=== PATIENT | female | born 1985 | race African-American/Black ===

== ENCOUNTER 2018-01-18 00:46 | Emergency (ER) | payer SELFPAY ==
[~2018-01-18] VITALS: Ht 167.6 cm; Wt 54.0 kg
[2018-01-18 01:02] VITALS: BP 113/65
== END 2018-01-18 08:18 | disposition left against medical advice (07) ==
LOC: ER 00:46
DX: Z04.8 Encounter for examination and observation for other specified reasons (principal); Z53.21 Procedure and treatment not carried out due to patient leaving prior to being seen by health care provider

== ENCOUNTER 2021-05-06 14:31 | Emergency (ER) | payer MEDICAID ==
[~2021-05-06] VITALS: Ht 167.6 cm; Wt 54.0 kg
[2021-05-06 14:36] VITALS: BP 126/90
[2021-05-06] MEDS ORDERED: TETRACAINE 0.5% OPHTH DROPS 4ML BOTHEYE ONE (15:00)
[2021-05-06] MEDS ORDERED: FLUORESCEIN SODIUM 1MG/STRIP BOTHEYE ONE (15:00)
[2021-05-06] MEDS ORDERED: OFLO5DRO3 EACHEYE (15:48)
== END 2021-05-06 16:20 | disposition home or self-care (01) ==
LOC: ER 14:42
DX: S05.8X2A Other injuries of left eye and orbit, initial encounter (principal); S05.8X1A Other injuries of right eye and orbit, initial encounter; F12.10 Cannabis abuse, uncomplicated; Y08.89XA Assault by other specified means, initial encounter; Y93.89 Activity, other specified; Y92.811 Bus as the place of occurrence of the external cause
CPT/HCPCS: 99283